=== PATIENT | male | born 1985 | race Caucasian/White ===

== ENCOUNTER 2022-10-23 09:21 | Emergency (ER) | payer OTHER ==
[2022-10-23 09:33] VITALS: RESP 18
[2022-10-23] MEDS ORDERED: ONDANSETRON 4 MG/2 ML VIAL IVP STA (09:52)
[2022-10-23] MEDS ORDERED: SODIUM CHLORIDE 0.9% 1,000 ML IV STA (09:52)
[2022-10-23] MEDS ORDERED: FAMOTIDINE 20 MG/2 ML VIAL IV STA (09:53)
--- NOTE | 2022-10-23 09:55 | ED ---
General Adult HPI - General Chief complaint: Nausea/Vomiting/Diarrhea Stated complaint: Vomiting Time Seen by Provider: 10/23/22 09:35 Source: patient, RN notes reviewed Mode of arrival: ambulatory Limitations: no limitations - History of Present Illness Initial comments: Patient is a pleasant 37-year-old male presenting to the emergency department with concerns for nausea. Onset of symptoms was this morning. Patient did vomit one or 2 times. Patient also had one large watery bowel movement. Patient did have some abdominal cramping however that has resolved. Patient has continued nausea. Patient questions if he was chilled or feverish earlier. Patient questions if he had bad food recently. - Related Data Previous Rx's Medication Instructions Recorded Lansoprazole [Prevacid] 30 mg PO DAILY #30 cap 10/23/22 Ondansetron Odt [Zofran Odt] 4 mg PO Q8HR PRN #10 tab 10/23/22 Allergies Allergy/AdvReac Type Severity Reaction Status Date / Time No Known Allergies Allergy Verified 10/23/22 09:33 Review of Systems ROS Statement: Those systems with pertinent positive or pertinent negative responses have been documented in the HPI. ROS Other: All systems not noted in ROS Statement are negative. Constitutional: Denies: fever Eyes: Denies: eye pain ENT: Denies: ear pain Respiratory: Denies: cough Cardiovascular: Denies: chest pain Endocrine: Denies: fatigue Gastrointestinal: Reports: as per HPI, abdominal pain, nausea, vomiting Genitourinary: Denies: dysuria Musculoskeletal: Denies: back pain Past Medical History Past Medical History: Asthma Additional Past Medical History / Comment(s): prostate History of Any Multi-Drug Resistant Organisms: MRSA Date of last positivie culture/infection: 2016 MDRO Source:: buttock Past Surgical History: Orthopedic Surgery Past Psychological History: Bipolar Smoking Status: Current every day smoker, Vaper Past Alcohol Use History: Occasional Past Drug Use History: Marijuana General Exam Limitations: no limitations General appearance: alert, in no apparent distress Head exam: Present: normocephalic Eye exam: Present: normal appearance Neck exam: Present: normal inspection Respiratory exam: Present: normal lung sounds bilaterally Cardiovascular Exam: Present: regular rate, normal rhythm Expanded Peripheral pulses: 2+: Dorsalis Pedis (R), Dorsalis Pedis (L) GI/Abdominal exam: Present: soft, normal bowel sounds. Absent: distended, tenderness, guarding, rebound, rigid, pulsatile mass Extremities exam: Present: normal inspection. Absent: pedal edema, calf tenderness Neurological exam: Present: alert Psychiatric exam: Present: normal affect, normal mood Skin exam: Present: normal color Course Vital Signs 10/23/22 10/23/22 09:28 10:04 Temperature 97.7 F 98.6 F Pulse Rate 84 80 Respiratory 18 18 Rate Blood Pressure 135/79 127/83 O2 Sat by Pulse 97 93 L Oximetry Medical Decision Making - Medical Decision Making Was pt. sent in by a medical professional or institution (, PA, PUBLIC AREA SUPERVISOR, urgent care, hospital, or jail...) When possible be specific @ -No Did you speak to anyone other than the patient for history (EMS, parent, family, police, friend...)? What history was obtained from this source @ -No Did you review nursing and triage notes (agree or disagree)? Why? @ -I reviewed and agree with nursing and triage notes Were old charts reviewed (outside hosp., previous admission, EMS record, old EKG, old radiological studies, urgent care reports/EKG's, jail records)? Report findings @ -No old charts were reviewed Differential Diagnosis (chest pain, altered mental status, abdominal pain women, abdominal pain men, vaginal bleeding, weakness, fever, dyspnea, syncope, headache, dizziness, GI bleed, back pain, seizure, CVA, palpatations, mental health)? @ -Differential Abdominal Pain Men: Appendicitis, cholecystitis, diverticulosis, ischemic bowel, pancreatitis, hepatitis, UTI, gastroenteritis, AAA, incarcerated hernia, bowel obstruction, constipation, inflammatory bowel, hepatitis, peptic ulcer disease, splenic infarction, perforated viscus, testicular torsion, this is not meant to be an all-inclusive list EKG interpreted by me (3pts min.). @ -As above X-rays interpreted by me (1pt min.). @ -Abdominal x-ray shows no acute process CT interpreted by me (1pt min.). @ -None done U/S interpreted by me (1pt. min.). @ -None done What testing was considered but not performed or refused? (CT, X-rays, U/S, labs)? Why? @ -None What meds were considered but not given or refused? Why? @ -None Did you discuss the management of the patient with other professionals (professionals i.e. , PA, PUBLIC AREA SUPERVISOR, lab, RT, psych nurse, nursing home social worker, support engineer, teacher, chief talent officer, case consultant)? Give summary @ -No Was smoking cessation discussed for >3mins.? @ -No Was critical care preformed (if so, how long)? @ -No Were there social determinants of health that impacted care today? How? (Homelessness, low income, unemployed, alcoholism, drug addiction, transportation, low edu. Level, literacy, decrease access to med. care, group home, rehab)? @ -No Was there de-escalation of care discussed even if they declined (Discuss DNR or withdrawal of care, Hospice)? DNR status @ -No What co-morbidities impacted this encounter? (DM, HTN, Smoking, COPD, CAD, Cancer, CVA, ARF, Chemo, Hep., AIDS, mental health diagnosis, sleep apnea, morbid obesity)? @ -None Was patient admitted / discharged? Hospital course, mention meds given and route, prescriptions, significant lab abnormalities, going to OR and other pertinent info. @ -Patient reevaluated and resting comfortably in bed. Patient updated on results and need for follow-up Undiagnosed new problem with uncertain prognosis? @ -No Drug Therapy requiring intensive monitoring for toxicity (Heparin, Nitro, Insulin, Cardizem)? @ -No Were any procedures done? @ -No Diagnosis/symptom? @ -Vomiting Acute, or Chronic, or Acute on Chronic? @ -Acute Uncomplicated (without systemic symptoms) or Complicated (systemic symptoms)? @ -default Side effects of treatment? @ -No Exacerbation, Progression, or Severe Exacerbation? @ -No Poses a threat to life or bodily function? How? (Chest pain, USA, CA, pneumonia, PE, COPD, DKA, ARF, appy, cholecystitis, CVA, Diverticulitis, Homicidal, Suicidal, threat to staff... and all critical care pts) @ -No - Lab Data Result diagrams: 10/23/22 09:56 10/23/22 09:56 Lab Results 10/23/22 10/23/22 Range/Units 09:56 09:56 WBC 7.5 (3.8-10.6) k/uL RBC 5.31 (4.30-5.90) m/uL Hgb 15.0 (13.0-17.5) gm/dL Hct 46.1 (39.0-53.0) % MCV 86.8 (80.0-100.0) fL MCH 28.2 (25.0-35.0) pg MCHC 32.5 (31.0-37.0) g/dL RDW 13.4 (11.5-15.5) % Plt Count 282 (150-450) k/uL MPV 7.0 Neutrophils % 62 % Lymphocytes % 27 % Monocytes % 7 % Eosinophils % 2 % Basophils % 1 % Neutrophils # 4.7 (1.3-7.7) k/uL Lymphocytes # 2.0 (1.0-4.8) k/uL Monocytes # 0.5 (0-1.0) k/uL Eosinophils # 0.1 (0-0.7) k/uL Basophils # 0.0 (0-0.2) k/uL Sodium 138 (137-145) mmol/L Potassium 3.9 (3.5-5.1) mmol/L Chloride 105 (98-107) mmol/L Carbon Dioxide 25 (22-30) mmol/L Anion Gap 8 mmol/L BUN 18 (9-20) mg/dL Creatinine 0.56 L (0.66-1.25) mg/dL Est GFR (CKD-EPI)AfAm >90 (>60 ml/min/1.73 sqM) Est GFR (CKD-EPI)NonAf >90 (>60 ml/min/1.73 sqM) Glucose 95 (74-99) mg/dL Calcium 9.2 (8.4-10.2) mg/dL Total Bilirubin 0.5 (0.2-1.3) mg/dL AST 28 (17-59) U/L ALT 30 (4-49) U/L Alkaline Phosphatase 63 (38-126) U/L Total Protein 6.9 (6.3-8.2) g/dL Albumin 4.3 (3.5-5.0) g/dL Amylase 51 (30-110) U/L Lipase 83 (23-300) U/L Disposition Clinical Impression: Vomiting Disposition: ADMITTED IP TO THIS [facility] Instructions (If sedation given, give patient instructions): Acute Nausea and Vomiting (ED) Additional Instructions: Please do follow-up with your primary care physician in the next one to 2 days for recheck. Prescription for Prevacid and Zofran have been sent to pharmacy. Return for increased pain, uncontrolled vomiting, fevers, worsening or changing symptoms or other concerns. Prescriptions: Lansoprazole [Prevacid] 30 mg PO DAILY #30 cap Ondansetron Odt [Zofran Odt] 4 mg PO Q8HR PRN #10 tab PRN Reason: Nausea Is patient prescribed a controlled substance at d/c from ED?: No Referrals: Tova Lee DO [Primary Care Provider] - 1-2 days Time of Disposition: 11:49
[2022-10-23 10:06] LABS: Basophils % (A) 1 %; Eosinophils # (A) 0.1 k/uL (0-0.7); Eosinophils % (A) 2 %; HCT 46.1 % (39.0-53.0); Lymphocytes % (A) 27 %; MCH 28.2 pg (25.0-35.0); MCHC 32.5 g/dL (31.0-37.0); MCV 86.8 fL (80.0-100.0); Monocytes # (A) 0.5 k/uL (0-1.0); Monocytes % (A) 7 %; Neutrophils # (A) 4.7 k/uL (1.3-7.7); Neutrophils % (A) 62 %; Platelet Count 282 k/uL (150-450); RBC 5.31 m/uL (4.30-5.90); RDW 13.4 % (11.5-15.5); WBC 7.5 k/uL (3.8-10.6)
[2022-10-23 10:20] LABS: ALT 30 U/L (4-49); AST 28 U/L (17-59); African American GFR (CKD) >90 (>60 ml/min/1.73 sqM); Albumin 4.3 g/dL (3.5-5.0); Alkaline Phosphatase 63 U/L (38-126); Amylase 51 U/L (30-110); Anion Gap 8 mmol/L; Blood Urea Nitrogen 18 mg/dL (9-20); Calcium 9.2 mg/dL (8.4-10.2); Carbon Dioxide 25 mmol/L (22-30); Chloride 105 mmol/L (98-107); Glucose 95 mg/dL (74-99); Lipase 83 U/L (23-300); Non-African American GFR(CKD) >90 (>60 ml/min/1.73 sqM); Potassium 3.9 mmol/L (3.5-5.1); Sodium 138 mmol/L (137-145); Total Bilirubin 0.5 mg/dL (0.2-1.3); Total Protein 6.9 g/dL (6.3-8.2)
--- NOTE | 2022-10-23 10:51 | XR ---
EXAMINATION TYPE: XR KUB DATE OF EXAM: 10/23/2022 COMPARISON: NONE HISTORY: Pain TECHNIQUE: Single supine KUB image of the abdomen is obtained FINDINGS: Small bowel demonstrates no evidence for dilatation or air fluid levels. Gas and fecal material is seen in non-distended colon. No convincing evidence for pneumoperitoneum. No unusual calcifications. The lung bases are clear. The osseous structures are intact. IMPRESSION: 1. Overall nonobstructive bowel gas pattern.
[2022-10-23 12:14] VITALS: BP 116/77; PULSE 68
[2022-10-23] MEDS ORDERED: METOCLOPRAMIDE 5 MG/ML 2 ML VIAL IVP STA (12:22)
[2022-10-23 12:26] VITALS: TEMP 98.1
== END 2022-10-23 12:32 | disposition other institution (70) ==
LOC: EC 09:21
DX: R11.2 Nausea with vomiting, unspecified (principal); J45.909 Unspecified asthma, uncomplicated; F17.290 Nicotine dependence, other tobacco product, uncomplicated; F12.90 Cannabis use, unspecified, uncomplicated
CPT/HCPCS: 36415; 80053; 82150; 83690; 85025; 74018; 99285; 96374; 96375; 96361 ×2; J2405

== ENCOUNTER → 2022-12-20 | Outpatient (CLI) | payer OTHER | END | disposition home or self-care (01) | LOC: LABWHC1 12:14 | PROVIDERS: ATTEND Surgery Plastic and Reconstructive Surgery | DX: Z01.89 Encounter for other specified special examinations (principal) | CPT/HCPCS: 36415; 93005 ==

== ENCOUNTER 2023-02-02 10:08 | Day surgery (SDC) | payer OTHER ==
[2023-01-31 15:21] VITALS: BMI 27.2
[~2023-02-02 10:08] MED LIST: LACTATED RINGERS 1,000 ML IV SCH; LIDOCAINE 1% (10MG/ML) FOR IV START INTRADERMA PRN; ONDANSETRON 4 MG/2 ML VIAL IVP PRN
[2023-02-02 11:07] VITALS: RESP 16; TEMP 97.3
[2023-02-02] MEDS ORDERED: PROPOFOL 10 MG/ML 20 ML VIAL IV ONE (11:22)
[2023-02-02] MEDS ORDERED: LIDOCAINE 2% (PF) 20 MG/ML 5 ML VIAL ONE (11:22)
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
--- NOTE | 2023-02-02 11:46 | P.OP ---
Date of Procedure: 02/02/23 Preoperative Diagnosis: Gastroenteritis Abdominal pain Diarrhea Postoperative Diagnosis: Antral gastritis Mild esophagitis Rectal biopsy pathology pending Procedure(s) Performed: EGD Colonoscopy Anesthesia: MAC Surgeon: Juno Glez Pathology: other (Antrum, esophagus, rectum) Condition: stable Disposition: PACU Description of Procedure: A shunt placed on the endoscopy table in the lateral position. He received IV sedation. The gastro-/oropharynx passed in the esophagus and stomach. Scope w as then placed through the pylorus. The first and second portion of the duodenum appeared normal. The scope was then brought back the antrum this. Mildly inflamed. A biopsies performed. Scope was unretroflexed and remainder of the stomach appeared normal. There was no significant hiatal hernia. The GE junction was at 40 cm. The distal esophagus was mildly inflamed. A biopsies performed. The proximal esophagus appeared normal. Scope withdrawn for patient. Next digital rectal exam was performed. This revealed no abnormalities. The prostate was symmetrical without nodules. The flexible colonoscope was then placed patient anus and passed throughout the entire colon. The ileocecal valve was visualized. The cecum, ascending and transverse colon appeared normal. The descending and sigmoid colon were normal. The scope was then brought back the rectum and this appeared normal.. Due to the patient's complaints of diarrhea a random rectal biopsies performed. The scope was then withdrawn from the patient.
[2023-02-02 12:21] VITALS: BP 110/63; PULSE 64
== END 2023-02-02 12:53 | disposition home or self-care (01) ==
LOC: ORWHC2ENDO 10:08
PROVIDERS: ATTEND Surgery
DX: K29.50 Unspecified chronic gastritis without bleeding (principal); K21.00 Gastro-esophageal reflux disease with esophagitis, without bleeding; K52.9 Noninfective gastroenteritis and colitis, unspecified; E78.5 Hyperlipidemia, unspecified; J45.909 Unspecified asthma, uncomplicated; H91.90 Unspecified hearing loss, unspecified ear; Z87.891 Personal history of nicotine dependence; Z79.1 Long term (current) use of non-steroidal anti-inflammatories (NSAID); Z79.899 Other long term (current) drug therapy
CPT/HCPCS: 88305; 45380; 43239; J2704; J2001

== ENCOUNTER → 2023-02-03 | Outpatient (CLI) | payer OTHER ==
--- NOTE | 2023-02-03 14:57 | NM ---
EXAMINATION TYPE: NM hepatobiliary w CCK DATE OF EXAM: 02/03/2023 COMPARISON: NONE CLINICAL INDICATION: Male, 37 years old with history of K52.9 NONINFECTIVE GASTROENTERITIS AND COLITI S; TECHNIQUE: After the intravenous administration of 5.0 mCi Tc 99m Mebrofenin hepatobiliary scintigrap hy is performed. Immediate images post injection. FINDINGS: There is satisfactory initial accumulation of tracer by the liver. The gallbladder is visualized wit hin 10 minutes. The small bowel activity is noted within 8 minutes. At one hour CCK was administere d, patient was injected with 1.73 mcg of Kinevac, and gallbladder ejection fraction is calculated at 77 %, in the normal range. Therefore there is no scintigraphic evidence of cystic or common bile bradley t obstruction to suggest acute cholecystitis or gallbladder dyskinesia. IMPRESSION: Exam is within normal limits.
== END | disposition home or self-care (01) ==
LOC: RADNMMAIN 12:37
PROVIDERS: ATTEND Surgery
DX: K52.9 Noninfective gastroenteritis and colitis, unspecified (principal)
CPT/HCPCS: 78227; A9537; J2805